=== PATIENT | male | born 1940 | race Caucasian/White ===

== ENCOUNTER 2018-01-02 16:57 | Inpatient (IN) | payer MEDICARE ==
[~2018-01-02] VITALS: Ht 172.7 cm; Wt 59.1 kg
[2018-01-02 17:56] LABS: EOSINOPHILS 3.6 % (0-7); HEMATOCRIT 31.7 % (42.0-54.0); IMMATURE GRANULOCYTES 0.1 % (0-5); LYMPHOCYTES 16.5 % (15-50); MCH 23.8 pg (26.0-34.0); MCHC 31.5 g/dL (31.0-37.0); MCV 75.5 fL (80.0-100.0); MEAN PLATELET VOLUME 9.7 fL (7.4-10.4); MONOCYTES 17.6 % (2-11); NEUTROPHILS 61.2 % (40-80); PLATELET COUNT 193 10x3/uL (130-400); WBC 7.2 10x3/uL (4.8-10.8)
[2018-01-02 19:01] LABS: DIGOXIN 0.75 ng/mL (0.90-2.00)
[2018-01-02 20:05] LABS: ALBUMIN 3.3 g/dL (3.4-5.0); ANION GAP 9.9 mmol/L (8-16); BILIRUBIN - TOTAL 0.66 mg/dL (0.2-1.3); CALCIUM 9.3 mg/dL (8.5-10.1); CARBON DIOXIDE 29.7 mmol/L (21.0-32.0); CREATININE - SERUM 1.4 mg/dL (0.6-1.3); POTASSIUM - SERUM 3.6 mmol/L (3.5-5.1); PROTEIN - SERUM 7.2 g/dL (6.4-8.2)
[2018-01-02] MEDS ORDERED: K-DUR20 MEQ PO (21:52)
[2018-01-02] MEDS ORDERED: LANOXIN125 MCG PO (21:52)
[2018-01-02] MEDS ORDERED: FUROSEMIDE20 MG PO (21:53)
[2018-01-02] MEDS ORDERED: XARELTO20 MG PO (21:53)
[2018-01-02] MEDS ORDERED: TOPROL XL25 MG PO (21:54)
[2018-01-02] MEDS ORDERED: LIPITOR10 MG PO (21:55)
[2018-01-02] MEDS ORDERED: BAYER CHEWABLE81 MG PO (21:56)
[2018-01-02 22:58] VITALS: BP 126/69
[2018-01-03 01:21] VITALS: BP 126/69
[2018-01-03 01:57] VITALS: BP 126/69; BMI 18.8
[2018-01-03 05:44] VITALS: BP 120/68
[2018-01-03 08:32] VITALS: BP 103/50
[2018-01-03 09:55] LABS: % SATURATION 6 % (15-55); IRON 25 ug/dl (35-150); TOTAL IRON BIND CAPACITY 385 ug/dl (260-445); UNSAT IRON BIND CAPACITY 360 ug/dl (150-375)
[2018-01-03 09:56] LABS: BILIRUBIN - DIRECT 0.35 mg/dL (0.00-0.30); BILIRUBIN - INDIRECT 0.61 mg/dL (0.00-1.00); BILIRUBIN - TOTAL 0.96 mg/dL (0.2-1.3)
[2018-01-03 12:03] LABS: ALBUMIN 3.4 g/dL (3.4-5.0); ANION GAP 14.2 mmol/L (8-16); BILIRUBIN - TOTAL 0.91 mg/dL (0.2-1.3); CALCIUM 9.6 mg/dL (8.5-10.1); CREATININE - SERUM 1.6 mg/dL (0.6-1.3); POTASSIUM - SERUM 3.2 mmol/L (3.5-5.1); PROTEIN - SERUM 8.1 g/dL (6.4-8.2)
[2018-01-03 12:04] LABS: EOSINOPHILS 3.7 % (0-7); HEMATOCRIT 32.4 % (42.0-54.0); HEMOGLOBIN 9.9 g/dL (13.5-17.5); IMMATURE GRANULOCYTES 0.3 % (0-5); MCH 23.6 pg (26.0-34.0); MCHC 30.6 g/dL (31.0-37.0); MCV 77.1 fL (80.0-100.0); MEAN PLATELET VOLUME 9.9 fL (7.4-10.4); MONOCYTES 11.5 % (2-11); NEUTROPHILS 66.5 % (40-80); PLATELET COUNT 216 10x3/uL (130-400); RDW 17.1 % (11.5-14.5); WBC 7.9 10x3/uL (4.8-10.8)
[2018-01-03 12:07] VITALS: BP 105/45
[2018-01-03 20:15] VITALS: BP 114/82; BP 124/83
[2018-01-04] VITALS (7 sets, daily range): BP systolic 88–169; BP diastolic 36–74
[2018-01-04 05:34] LABS: BASOPHILS 0.6 % (0-2); EOSINOPHILS 3.4 % (0-7); HEMATOCRIT 31.1 % (42.0-54.0); HEMOGLOBIN 9.6 g/dL (13.5-17.5); IMMATURE GRANULOCYTES 0.3 % (0-5); LYMPHOCYTES 18.2 % (15-50); MCH 23.6 pg (26.0-34.0); MCHC 30.9 g/dL (31.0-37.0); MCV 76.4 fL (80.0-100.0); MEAN PLATELET VOLUME 9.6 fL (7.4-10.4); MONOCYTES 13.8 % (2-11); NEUTROPHILS 63.7 % (40-80); PLATELET COUNT 204 10x3/uL (130-400); RBC 4.07 10x6/uL (4.20-6.10); RDW 17.2 % (11.5-14.5); WBC 7.8 10x3/uL (4.8-10.8)
[2018-01-04 06:07] LABS: ANION GAP 13.3 mmol/L (8-16); BILIRUBIN - TOTAL 0.8 mg/dL (0.2-1.3); CALCIUM 8.9 mg/dL (8.5-10.1); CARBON DIOXIDE 27.3 mmol/L (21.0-32.0); CREATININE - SERUM 1.4 mg/dL (0.6-1.3); PROTEIN - SERUM 7.1 g/dL (6.4-8.2)
[2018-01-04 06:09] LABS: POTASSIUM - SERUM 4.6 mmol/L (3.5-5.1)
[2018-01-05] VITALS: BP 108/48
[2018-01-05 04:00] VITALS: BP 126/38
[2018-01-05 05:47] LABS: BASOPHILS 0.8 % (0-2); EOSINOPHILS 4.5 % (0-7); HEMATOCRIT 29.2 % (42.0-54.0); HEMOGLOBIN 8.8 g/dL (13.5-17.5); IMMATURE GRANULOCYTES 0.2 % (0-5); LYMPHOCYTES 16.3 % (15-50); MCH 23.1 pg (26.0-34.0); MCHC 30.1 g/dL (31.0-37.0); MCV 76.6 fL (80.0-100.0); MEAN PLATELET VOLUME 9.7 fL (7.4-10.4); MONOCYTES 15.1 % (2-11); NEUTROPHILS 63.1 % (40-80); PLATELET COUNT 210 10x3/uL (130-400); RBC 3.81 10x6/uL (4.20-6.10); RDW 17.6 % (11.5-14.5)
[2018-01-05 06:12] LABS: ALBUMIN 2.9 g/dL (3.4-5.0); ANION GAP 11.8 mmol/L (8-16); BILIRUBIN - TOTAL 0.87 mg/dL (0.2-1.3); CALCIUM 9.2 mg/dL (8.5-10.1); CARBON DIOXIDE 29.3 mmol/L (21.0-32.0); CREATININE - SERUM 1.4 mg/dL (0.6-1.3); POTASSIUM - SERUM 4.1 mmol/L (3.5-5.1)
[2018-01-05 08:06] VITALS: BP 86/49
[2018-01-05 12:16] LABS: HAPTOGLOBIN 183 mg/dL (34-200)
[2018-01-05 13:03] VITALS: BP 125/44
[2018-01-05 16:40] VITALS: BP 108/48
[2018-01-05 21:04] VITALS: BP 94/48
[2018-01-06 01:08] VITALS: BP 97/41
[2018-01-06 05:32] VITALS: BP 93/58
[2018-01-06 06:43] LABS: BASOPHILS 0.5 % (0-2); EOSINOPHILS 4.3 % (0-7); HEMATOCRIT 29.3 % (42.0-54.0); HEMOGLOBIN 8.9 g/dL (13.5-17.5); IMMATURE GRANULOCYTES 0.3 % (0-5); LYMPHOCYTES 13.9 % (15-50); MCH 23.5 pg (26.0-34.0); MCHC 30.4 g/dL (31.0-37.0); MCV 77.5 fL (80.0-100.0); MEAN PLATELET VOLUME 9.2 fL (7.4-10.4); MONOCYTES 14.2 % (2-11); NEUTROPHILS 66.8 % (40-80); PLATELET COUNT 185 10x3/uL (130-400); RBC 3.78 10x6/uL (4.20-6.10); RDW 18.2 % (11.5-14.5); WBC 6.5 10x3/uL (4.8-10.8)
[2018-01-06 06:57] LABS: ALBUMIN 2.9 g/dL (3.4-5.0); ANION GAP 13.5 mmol/L (8-16); BILIRUBIN - DIRECT 0.24 mg/dL (0.00-0.30); BILIRUBIN - TOTAL 0.8 mg/dL (0.2-1.3); CALCIUM 9.1 mg/dL (8.5-10.1); CARBON DIOXIDE 28.1 mmol/L (21.0-32.0); CREATININE - SERUM 1.3 mg/dL (0.6-1.3); POTASSIUM - SERUM 4.6 mmol/L (3.5-5.1); PROTEIN - SERUM 7.1 g/dL (6.4-8.2)
[2018-01-06 07:55] VITALS: BP 85/45
[2018-01-06 20:28] VITALS: BP 103/41
[2018-01-07 01:41] VITALS: BP 114/50
[2018-01-07 05:16] VITALS: BP 115/52
[2018-01-07 06:43] LABS: BASOPHILS 0.4 % (0-2); EOSINOPHILS 3.2 % (0-7); HEMATOCRIT 31.6 % (42.0-54.0); HEMOGLOBIN 9.7 g/dL (13.5-17.5); IMMATURE GRANULOCYTES 0.3 % (0-5); LYMPHOCYTES 12.6 % (15-50); MCHC 30.7 g/dL (31.0-37.0); MCV 78.2 fL (80.0-100.0); MEAN PLATELET VOLUME 9.4 fL (7.4-10.4); MONOCYTES 12.1 % (2-11); NEUTROPHILS 71.4 % (40-80); PLATELET COUNT 196 10x3/uL (130-400); RBC 4.04 10x6/uL (4.20-6.10); RDW 18.1 % (11.5-14.5); WBC 7.4 10x3/uL (4.8-10.8)
[2018-01-07 07:08] LABS: ALBUMIN 2.8 g/dL (3.4-5.0); BILIRUBIN - TOTAL 0.8 mg/dL (0.2-1.3); CALCIUM 9.2 mg/dL (8.5-10.1); CARBON DIOXIDE 27.4 mmol/L (21.0-32.0); CREATININE - SERUM 1.3 mg/dL (0.6-1.3); POTASSIUM - SERUM 4.4 mmol/L (3.5-5.1); PROTEIN - SERUM 6.8 g/dL (6.4-8.2)
[2018-01-07 09:50] VITALS: BP 99/59
[2018-01-07 12:06] VITALS: BP 92/48
[2018-01-07 17:27] VITALS: BP 92/47
[2018-01-07 21:06] VITALS: BP 105/49
[2018-01-08 00:58] VITALS: BP 103/42
[2018-01-08 04:00] VITALS: BP 104/41
[2018-01-08 07:02] LABS: BASOPHILS 0.5 % (0-2); EOSINOPHILS 1.8 % (0-7); HEMOGLOBIN 10.1 g/dL (13.5-17.5); IMMATURE GRANULOCYTES 0.2 % (0-5); LYMPHOCYTES 12.3 % (15-50); MCHC 30.6 g/dL (31.0-37.0); MCV 78.6 fL (80.0-100.0); MEAN PLATELET VOLUME 9.6 fL (7.4-10.4); MONOCYTES 12.4 % (2-11); NEUTROPHILS 72.8 % (40-80); PLATELET COUNT 204 10x3/uL (130-400); RDW 19.3 % (11.5-14.5); WBC 8.2 10x3/uL (4.8-10.8)
[2018-01-08 07:19] LABS: ALBUMIN 2.7 g/dL (3.4-5.0); ANION GAP 13.6 mmol/L (8-16); BILIRUBIN - TOTAL 0.7 mg/dL (0.2-1.3); CALCIUM 9.2 mg/dL (8.5-10.1); CARBON DIOXIDE 28.3 mmol/L (21.0-32.0); CREATININE - SERUM 1.3 mg/dL (0.6-1.3); POTASSIUM - SERUM 3.9 mmol/L (3.5-5.1); PROTEIN - SERUM 6.8 g/dL (6.4-8.2)
[2018-01-08 08:48] VITALS: BP 104/53
[2018-01-08 11:38] VITALS: BP 118/52
[2018-01-08 13:29] LABS: APPEARANCE CLEAR (CLEAR); COLOR DK YELLOW (YELLOW)
[2018-01-08 13:30] LABS: BILIRUBIN NEGATIVE (NEGATIVE); GLUCOSE NEGATIVE (NEGATIVE); KETONE NEGATIVE (NEGATIVE); NITRITE NEGATIVE (NEGATIVE); PROTEIN NEGATIVE (NEGATIVE); SPECIFIC GRAVITY 1.015 (1.005-1.020); UROBILINOGEN NORMAL (NORMAL)
[2018-01-08 13:38] VITALS: BMI 18.7
[2018-01-08 15:09] VITALS: BP 102/53
[2018-01-08 16:40] VITALS: Ht 172.7 cm; Wt 59.1 kg
[2018-01-08 19:00] VITALS: BP 110/56
[2018-01-09 04:00] VITALS: BP 105/79
[2018-01-09 04:09] LABS: BASOPHILS 0.2 % (0-2); EOSINOPHILS 1.8 % (0-7); HEMATOCRIT 36.6 % (42.0-54.0); HEMOGLOBIN 11.3 g/dL (13.5-17.5); IMMATURE GRANULOCYTES 0.5 % (0-5); LYMPHOCYTES 10.7 % (15-50); MCH 24.4 pg (26.0-34.0); MCHC 30.9 g/dL (31.0-37.0); MEAN PLATELET VOLUME 9.4 fL (7.4-10.4); MONOCYTES 10.2 % (2-11); NEUTROPHILS 76.6 % (40-80); PLATELET COUNT 201 10x3/uL (130-400); RBC 4.63 10x6/uL (4.20-6.10); RDW 19.7 % (11.5-14.5)
[2018-01-09 04:17] LABS: WBC 10.5 10x3/uL (4.8-10.8)
[2018-01-09 04:43] LABS: ANION GAP 14.3 mmol/L (8-16); CALCIUM 9.7 mg/dL (8.5-10.1); CARBON DIOXIDE 27.8 mmol/L (21.0-32.0); CREATININE - SERUM 1.4 mg/dL (0.6-1.3); POTASSIUM - SERUM 4.1 mmol/L (3.5-5.1)
[2018-01-09 08:10] VITALS: BP 117/44
[2018-01-09 12:04] VITALS: BP 111/35
[2018-01-09 15:32] VITALS: BP 122/62
[2018-01-09 20:30] VITALS: BP 144/56
[2018-01-10] VITALS (9 sets, daily range): BP systolic 88–129; BP diastolic 40–72
[2018-01-10 07:06] LABS: BASOPHILS 0.5 % (0-2); EOSINOPHILS 1.2 % (0-7); HEMATOCRIT 34.2 % (42.0-54.0); HEMOGLOBIN 10.6 g/dL (13.5-17.5); IMMATURE GRANULOCYTES 0.2 % (0-5); LYMPHOCYTES 13.5 % (15-50); MCH 24.8 pg (26.0-34.0); MCV 80.1 fL (80.0-100.0); MEAN PLATELET VOLUME 9.4 fL (7.4-10.4); NEUTROPHILS 73.6 % (40-80); PLATELET COUNT 173 10x3/uL (130-400); RBC 4.27 10x6/uL (4.20-6.10); RDW 20.8 % (11.5-14.5); WBC 9.1 10x3/uL (4.8-10.8)
[2018-01-10 07:24] LABS: CALCIUM 9.9 mg/dL (8.5-10.1); CARBON DIOXIDE 30.5 mmol/L (21.0-32.0); CREATININE - SERUM 1.5 mg/dL (0.6-1.3); POTASSIUM - SERUM 4.5 mmol/L (3.5-5.1)
[2018-01-11] VITALS (24 sets, daily range): BP systolic 94–134; BP diastolic 38–93
[2018-01-11 04:07] LABS: BASOPHILS 0.6 % (0-2); EOSINOPHILS 0.9 % (0-7); HEMATOCRIT 28.6 % (42.0-54.0); HEMOGLOBIN 8.6 g/dL (13.5-17.5); IMMATURE GRANULOCYTES 0.2 % (0-5); LYMPHOCYTES 13.7 % (15-50); MCH 24.4 pg (26.0-34.0); MCHC 30.1 g/dL (31.0-37.0); MEAN PLATELET VOLUME 9.4 fL (7.4-10.4); NEUTROPHILS 73.6 % (40-80); PLATELET COUNT 147 10x3/uL (130-400); RBC 3.53 10x6/uL (4.20-6.10); RDW 20.9 % (11.5-14.5); WBC 8.9 10x3/uL (4.8-10.8)
[2018-01-11 04:37] LABS: ALBUMIN 2.5 g/dL (3.4-5.0); ANION GAP 9.4 mmol/L (8-16); BILIRUBIN - TOTAL 0.78 mg/dL (0.2-1.3); CALCIUM 9.5 mg/dL (8.5-10.1); CARBON DIOXIDE 33.1 mmol/L (21.0-32.0); CREATININE - SERUM 1.7 mg/dL (0.6-1.3); MAGNESIUM - SERUM 2.1 mg/dL (1.8-2.4); PHOSPHOROUS 5.3 mg/dL (2.5-4.9); POTASSIUM - SERUM 4.5 mmol/L (3.5-5.1); PROTEIN - SERUM 6.2 g/dL (6.4-8.2)
[2018-01-11 11:13] LABS: ANA REFLEX - DIRECT Negative (Negative)
[2018-01-11 11:56] LABS: INR 3.34 (0.85-1.17); PROTIME 33.1 SECONDS (11.6-15.0)
[2018-01-11 11:57] LABS: APTT 54.3 SECONDS (22.8-39.4)
[2018-01-12] VITALS (23 sets, daily range): BP systolic 90–130; BP diastolic 40–99
[2018-01-12 04:16] LABS: BASOPHILS 0.2 % (0-2); EOSINOPHILS 3.4 % (0-7); HEMATOCRIT 33.9 % (42.0-54.0); IMMATURE GRANULOCYTES 0.3 % (0-5); LYMPHOCYTES 11.5 % (15-50); MCH 25.1 pg (26.0-34.0); MCHC 30.7 g/dL (31.0-37.0); MCV 81.9 fL (80.0-100.0); MONOCYTES 10.1 % (2-11); NEUTROPHILS 74.5 % (40-80); PLATELET COUNT 148 10x3/uL (130-400); RBC 4.14 10x6/uL (4.20-6.10); WBC 8.9 10x3/uL (4.8-10.8)
[2018-01-12 04:22] LABS: HEMOGLOBIN 10.4 g/dL (13.5-17.5)
[2018-01-12 04:42] LABS: ALBUMIN 2.9 g/dL (3.4-5.0); ANION GAP 10.7 mmol/L (8-16); BILIRUBIN - TOTAL 0.91 mg/dL (0.2-1.3); CALCIUM 9.8 mg/dL (8.5-10.1); CARBON DIOXIDE 30.9 mmol/L (21.0-32.0); CREATININE - SERUM 1.5 mg/dL (0.6-1.3); POTASSIUM - SERUM 4.6 mmol/L (3.5-5.1); PROTEIN - SERUM 7.2 g/dL (6.4-8.2)
[2018-01-12 12:18] LABS: ANCA - ANTIMYELOPEROXIDASE <9.0 U/mL (0.0-9.0); ANCA - ANTIPROTEINASE 3 <3.5 U/mL (0.0-3.5); ANCA - ATYPICAL <1:20 titer (Neg:<1:20); ANCA - CYTOPLASMIC <1:20 titer (Neg:<1:20); ANCA - PERINUCLEAR <1:20 titer (Neg:<1:20)
[2018-01-13] VITALS (9 sets, daily range): BP systolic 92–113; BP diastolic 30–64
[2018-01-13 04:36] LABS: BASOPHILS 0.3 % (0-2); EOSINOPHILS 1.6 % (0-7); HEMATOCRIT 31.8 % (42.0-54.0); HEMOGLOBIN 9.5 g/dL (13.5-17.5); IMMATURE GRANULOCYTES 0.2 % (0-5); LYMPHOCYTES 9.7 % (15-50); MCH 24.9 pg (26.0-34.0); MCHC 29.9 g/dL (31.0-37.0); MCV 83.2 fL (80.0-100.0); MEAN PLATELET VOLUME 9.7 fL (7.4-10.4); MONOCYTES 8.1 % (2-11); NEUTROPHILS 80.1 % (40-80); PLATELET COUNT 150 10x3/uL (130-400); RBC 3.82 10x6/uL (4.20-6.10); WBC 8.6 10x3/uL (4.8-10.8)
[2018-01-13 04:51] LABS: ANION GAP 11.5 mmol/L (8-16); CALCIUM 9.8 mg/dL (8.5-10.1); CARBON DIOXIDE 32.6 mmol/L (21.0-32.0); CREATININE - SERUM 1.8 mg/dL (0.6-1.3); POTASSIUM - SERUM 5.1 mmol/L (3.5-5.1)
== END 2018-01-13 15:10 | disposition home health service (06) | DRG 291 ==
LOC: D.ER 16:57 → D.MS 19:11 → D.ICU 19:11 → D.EDHOLD 19:11 → D.M2 19:11 → D.MS 19:13 → D.M2 01-03 19:43 → D.ICU 01-10 20:40
PROVIDERS: Emergency Medicine; Family Medicine; Internal Medicine Cardiovascular Disease; Internal Medicine Hematology & Oncology; Internal Medicine Nephrology; Physician Assistant Medical
PROC: 5A09457 Assistance with Respiratory Ventilation, 24-96 Consecutive Hours, Continuous Positive Airway Pressure (ICD-10-PCS; principal; 2018-01-10)
DX: I11.0 Hypertensive heart disease with heart failure (principal); K29.71 Gastritis, unspecified, with bleeding; J69.0 Pneumonitis due to inhalation of food and vomit; I50.23 Acute on chronic systolic (congestive) heart failure; Z79.01 Long term (current) use of anticoagulants; I07.1 Rheumatic tricuspid insufficiency; I27.20 Pulmonary hypertension, unspecified; Z85.72 Personal history of non-Hodgkin lymphomas; I42.9 Cardiomyopathy, unspecified; J44.9 Chronic obstructive pulmonary disease, unspecified; I48.2 Chronic atrial fibrillation; I25.10 Atherosclerotic heart disease of native coronary artery without angina pectoris; Z95.1 Presence of aortocoronary bypass graft; D50.9 Iron deficiency anemia, unspecified; Z87.891 Personal history of nicotine dependence; R41.0 Disorientation, unspecified